=== PATIENT | male | born 1995 | race American Indian/Alaskan Native ===

== ENCOUNTER 2022-08-14 21:59 | Emergency (ER) | payer OTHER ==
[2022-08-14] MEDS ORDERED: Diphtheria,Pertussis(Acell),Tetanus Vaccine 0.5 ML Syringe IM ONE (22:25)
[2022-08-14] MEDS ORDERED: Bacitracin Oint 1 GM U/D Packet TOP ONE (22:25)
== END 2022-08-14 22:37 | disposition home or self-care (01) ==
LOC: DL.ED 21:59
DX: S81.012A Laceration without foreign body, left knee, initial encounter (principal); Z23 Encounter for immunization; F17.210 Nicotine dependence, cigarettes, uncomplicated; W20.8XXA Other cause of strike by thrown, projected or falling object, initial encounter
CPT/HCPCS: 90471; 90715; 99282